=== PATIENT | female | born 1950 | race Caucasian/White ===

== ENCOUNTER 2016-10-07 20:20 | Inpatient (IN) | payer BC ==
--- NOTE | ~2016-10-07 | HP ---
History And Physical [place] [id number] [facility] [place]. [address] NAME: LAVONNE HO : 46 STATUS : ADM IN [facility]#: [id number] AGE: 65 ADM/REG DATE : 10/07/16 MR#: [id number] REPORT SERV DATE: 10/07/16 DICTATED BY: MAYA DIETRICH DATE: 10/07/16 REPORT STATUS : Draft TRANSCRIBED BY: MODL DATE: 10/07/16 DATE OF ADMISSION: 10/07/2016 POINT OF ENTRY: [facility] Emergency Department. CHIEF COMPLAINT: Shortness of breath, cough, and sputum production. HISTORY OF PRESENT ILLNESS: Ms. Ho is a 65-year-old female with a history of hypertension; hyperlipidemia; as well as atrial fibrillation, on Coumadin, who presents to the emergency department with a two-day history of chills, myalgias, body aches, as well as shortness of breath, cough, and sputum production. The patient states her symptoms began on Sunday evening after returning home from work. At first, they were chills and myalgias as well as some body aches. This was followed by sinus congestion that was reported to be bloody as well as some productive cough and sputum production with some scant hemoptysis in the sputum as well as some shortness of breath. The patient denies any fevers, chest pain, palpitations, abdominal pain, nausea, vomiting, diarrhea, constipation, dysuria, lower extremity edema, melena, or hematochezia. The patient states she did have an episode of vomiting here in the emergency department after receiving some medications, which is improved with some Zofran. COMPREHENSIVE REVIEW OF SYSTEMS: Otherwise negative unless listed in history of present illness. Initial evaluation in the emergency department is notable for a chest x-ray concerning for right middle lobe as well as possible left lower lobe pneumonia. White count was normal. She was noted to be mildly hypoxemic requiring about 2 L by nasal cannula. INR is 2.0. Remaining of her labs were otherwise unremarkable. She was admitted to the Hospitalist Service for further evaluation and management. PREVIOUS MEDICAL HISTORY: 1. Atrial fibrillation, on Coumadin. 2. Hypertension. 3. Hyperlipidemia. 4. Asplenia. SURGICAL HISTORY: 1. Unknown gastric bypass surgery and then reversal. 2. 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 ALLERGIES: HYDROCHLOROTHIAZIDE AND ALCOHOL. HOME MEDICATIONS: 1. Lasix 20 mg daily. 2. Cozaar 50 mg daily. 3. Lovastatin 20 mg daily. History And Physical [address] [place]. [address] NAME: LAVONNE HO : 46 STATUS : ADM IN PAT#: [id number] AGE: 65 ADM/REG DATE : 10/07/16 MR#: [id number] REPORT SERV DATE: 10/07/16 DICTATED BY: MAYA DIETRICH DATE: 10/07/16 REPORT STATUS : Draft TRANSCRIBED BY: MODJim DATE: 10/07/16 4. Toprol 50 mg daily. 5. Protonix 20 mg daily. 6. Coumadin 5 mg daily. SOCIAL HISTORY: Denies any tobacco, alcohol, or illicits. FAMILY MEDICAL HISTORY: Mother with history of coronary artery disease in her 80s. Father with pancreatic cancer. Father of either pancreatic cancer or liver failure she is unsure. LABS AND IMAGIN. White count is 9.1, hemoglobin is 13.2, hematocrit is 39.9, platelets 220, INR is 2.0. 2. Sodium is 133, potassium 3.5, chloride 102, carbon dioxide 25, BUN 12, creatinine 0.70, glucose is 106, calcium is 8.8, magnesium is 2.1. 3. Troponin is less than 0.02. 4. EKG per my review shows atrial fibrillation with no evidence of any acute ischemic infarction. Heart rate was 103. 5. Chest x-ray per my review shows right middle lobe as well as left lower lobe infiltrate concerning for pneumonia. PHYSICAL EXAMINATION: VITAL SIGNS: Temperature is 98.5 degrees Fahrenheit; pulse is 109; respirations 20; saturating 94% on 2 L by nasal cannula; blood pressure 127/90, on recheck, blood pressure is now 157/89, pulse of 100s to one teens, saturating 94% on 2 L by nasal cannula. GENERAL: The patient is awake, alert, in no acute distress, resting comfortably in bed. She is a well-developed, well-nourished female. HEENT: Atraumatic and normocephalic. Moist mucous membranes. Pupils are equal, round, reactive to light and accommodation. Extraocular eye movements intact. No scleral icterus. NECK: No jugular venous distention or carotid bruits. CARDIAC: Irregularly irregular rate and rhythm. No murmurs, rubs, or gallops. LUNGS: Does have some left lower lobe with right middle lobe rhonchi, otherwise is not in acute distress. No wheezes or crackles appreciated. ABDOMEN: Soft, nontender, nondistended. Good bowel sounds. No rebound, guarding, or rigidity. EXTREMITIES: Warm and well perfused. No cyanosis, clubbing, or edema. SKIN: Warm and dry. PSYCH: Affect appropriate. NEURO: Alert and oriented x3. Cranial nerves 2 through 12 grossly intact. Speech is normal. Gait not assessed. ASSESSMENT: Ms. Ho is a 65-year-old female, who is asplenic from her previous splenectomy, who presents with a two-day history of chills, body aches, myalgias, as well as productive cough with hemoptysis, found to have evidence of pneumonia. PROBLEM LIST: 1. Pneumonia. 2. Asplenia. History And Physical [address] [address] NAME: LAVONNE HO : 46 STATUS : ADM IN [facility]#: [id number] AGE: 65 ADM/REG DATE : 10/07/16 MR#: [id number] REPORT SERV DATE: 10/07/16 DICTATED BY: MAYA DIETRICH DATE: 10/07/16 REPORT STATUS : Draft TRANSCRIBED BY: TOYA DATE: 10/07/16 3. Hypoxia. 4. Hemoptysis. 5. History of atrial fibrillation, on Coumadin. PLAN: 1. Pneumonia. The patient has community-acquired pneumonia. We will treat with IV Rocephin as well as azithromycin. Followup blood cultures. Try to obtain sputum cultures as well as urinary antigens. 2. Hypoxia, likely secondary to pneumonia. Provide some bronchodilators as well as pulmonary toilet, wean as tolerated. 3. Asplenia. The patient is at risk for worsening of her underlying infection. Therefore, we will admit the patient to the hospitalist Service with close observation as well as IV antibiotics. No evidence of any sepsis or decompensation at this time. 4. Hemoptysis. The patient is on anticoagulation. Does report some scant hemoptysis. We will check a CT scan of the chest holding her Coumadin pending the results of that CT scan. 5. Atrial fibrillation, on Coumadin. The patient is currently well rate controlled. Continue the patient's home beta-theresa holding her Coumadin. 6. DVT prophylaxis. The patient is therapeutically anticoagulated. CODE STATUS: The patient wished to be full code. JCB/MODL Maya Dietrich MD / [id number] CC: ABIEL THOMAS
--- NOTE | ~2016-10-07 | CN ---
Consultation Report [facility] [address] [place]. [address] NAME: LAVONNE BENÍTEZ : 46 STATUS : ADM IN PAT#: [id number] AGE: 65 ADM/REG DATE : 10/07/16 MR#: [id number] REPORT SERV DATE: 10/10/16 DICTATED BY: VINAYAK PLEITEZ DATE: 10/10/16 REPORT STATUS : Draft TRANSCRIBED BY: MODL DATE: 10/10/16 INFECTIOUS DISEASE CONSULT DATE OF CONSULTATION: 10/10/2016 REASON FOR CONSULTATION: New fevers in patient with pneumonia. HISTORY OF PRESENT ILLNESS: This is a 65-year-old female with a past medical history notable for atrial fibrillation along with previous gastric bypass, for which she underwent reversal along with splenectomy. She says she was in her baseline state of health until 10/06/2016 when she developed severe shaking chills and some joint pains especially in her wrist. She did develop a cough, which was productive of small amount of pinkish sputum and maybe one thumbnail sized clot. She had worsening shortness of breath, and all these symptoms brought her to the emergency department at [facility] where she was found to have a normal white blood cell count. Procalcitonin 0.12, INR 2.0, and chest x-ray showing pulmonary infiltrates which were better seen on CT scan without IV contrast that day which indeed revealed patchy and nodular infiltrates most extensive in the right upper lobe and right lower lobe with less extensive infiltrates in the left upper lobe including the lingular segment in the left lower lobe, felt to be most consistent with an asymmetric bilateral pneumonia. There was probable mild right paratracheal and subcarinal reactive adenopathy. The patient was treated with ceftriaxone and azithromycin. She was afebrile initially and remained afebrile until yesterday afternoon about 48 hours after presentation when she spiked a fever to 103.0 and again to 102.8 this morning. The patient has been on supplemental oxygen since admission and has been on 4 L since 10/08/2016 with oxygen saturations of 91% and 94%. She had a repeat chest x-ray today, which shows increasing mixed interstitial and alveolar infiltrates in the mid and lower right lung and at the left lung base. The patient says she continues to cough some, although not a lot and has just some clear mucus which at times is somewhat pinkish in color, and other times she has had some greenish mucus. She denies any more shaking chills. The patient denies any previous history like this except 44 years ago when she delivered her child and was told she had "blood in her lungs." She states her heart stopped then and she was resuscitated, but she has had no recurrent significant pulmonary issues since then. PAST MEDICAL HISTORY: As outlined above. In addition, there is a history of hyperlipidemia and hypertension. ALLERGIES: HYDROCHLOROTHIAZIDE. PRESENT MEDICATIONS: Include antibiotics as mentioned along with Lasix, Bumex, Cozaar, Mevacor, Lopressor, and Protonix. SOCIAL HISTORY: The patient is a lifelong nonsmoker, but has had a lot of exposure to secondhand smoke. She lives with her . No pets. 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 No recent travel history or unusual exposures otherwise. Consultation Report [address] [place]. [address] NAME: LAVONNE BENÍTEZ : 46 STATUS : ADM IN [facility]#: [id number] AGE: 65 ADM/REG DATE : 10/07/16 MR#: [id number] REPORT SERV DATE: 10/10/16 DICTATED BY: VINAYAK PLEITEZ DATE: 10/10/16 REPORT STATUS : Draft TRANSCRIBED BY: TOYA DATE: 10/10/16 FAMILY HISTORY: Notable for heart disease in her mother, pancreatic cancer in her father, and liver cancer and chronic hepatitis C in her brother. The patient states that a neighbor had tuberculosis when she was a child, but she had a little contact with her. REVIEW OF SYSTEMS: No significant headache or visual symptoms. No genitourinary symptoms. No gross hematuria. No further joint complaints. No skin rashes. No bleeding or bruising, otherwise. PHYSICAL EXAMINATION: VITAL SIGNS: The patient weighs 110 kg. Fevers as mentioned, blood pressure 143/67, pulse 100, respiratory rate 16 to 18 and nonlabored. GENERAL: She is lying in bed, in no acute distress, although looks mildly ill. Nasal cannula in place with 4 L oxygen. HEAD AND NECK: Extraocular movements intact. Conjunctivae normal. The oral cavity is clear. No ulcers. No thrush. NECK: Supple. No adenopathy. LUNGS: She has diffuse coarse breath sounds, expiratory wheezes, and scattered crackles and rhonchi. CARDIAC: Regular rhythm. Normal S1, S2 without murmur, gallop, or rub. ABDOMEN: Obese, soft, and nontender. EXTREMITIES: Show some venous stasis changes in the lower legs. Perhaps just trace edema. She has a peripheral IV without phlebitis. Joint exam unremarkable. LABORATORY STUDIES: White blood cell count 6.9; hemoglobin 11.8, it was 13 yesterday, and 13.2 on admission; platelets 233. Automated differential 85% neutrophils, 11% lymphocytes, 3% monocytes. Procalcitonin on admission 0.12, repeat today 0.27. Creatinine 0.74. BNP on 10/08/2016 is 151. MICROBIOLOGY STUDIES: Blood cultures from 10/07/2016 and from yesterday are negative to date. Urinalysis on admission: Large dipstick positive blood, 47 red blood cells. Repeat on 10/09/2016, small dipstick positive blood, 1 red blood cell. Rapid influenza screen is negative. Urine pneumococcal and Legionella antigens negative. IMPRESSION: The patient appears have a multilobar pneumonia. However, there are I believe atypical features here including the normal white blood cell count since admission. The lack of fever over the first 48 hours of admission and now these high fevers despite appropriate empiric antibiotics along with the somewhat low procalcitonin. There has been this report from the patient of some hemoptysis. Overall, I doubt this is a pulmonary hemorrhage syndrome, but must consider the possibility. The patient also has a history of splenectomy. PLAN: Consultation Report [address] [place]. [address] NAME: LAVONNE BENÍTEZ : 46 STATUS : ADM IN [facility]#: [id number] AGE: 65 ADM/REG DATE : 10/07/16 MR#: [id number] REPORT SERV DATE: 10/10/16 DICTATED BY: VINAYAK PLEITEZ DATE: 10/10/16 REPORT STATUS : Draft TRANSCRIBED BY: TOYA DATE: 10/10/16 1. Agree with the change of antibiotics to Zosyn. 2. We will attempt a sputum Gram stain and culture. 3. We will check a sedimentation rate, C-reactive protein, and liver function tests. 4. If no improvement, I would consider a pulmonary consultation and possible bronchoscopy, especially if she has any documented hemoptysis. 5. We also finished a five-day course of azithromycin. JUAN CARLOS/MODL Vinayak Pleitez M.D. / [id number] CC: DO MARTHA Felipe STEPHEN C.
--- NOTE | ~2016-10-07 | DS ---
Discharge Summary [facility] [address] [facility] [place]. [address] NAME: LAVONNE BENÍTEZ : 46 STATUS : DIS IN PAT#: [id number] AGE: 65 ADM/REG DATE : 10/07/16 MR#: [id number] REPORT SERV DATE: 10/15/16 DICTATED BY: SHAMA LOAIZA DATE: 10/15/16 REPORT STATUS : Draft TRANSCRIBED BY: MODL DATE: 10/15/16 ADMISSION DATE: 10/07/2016 DISCHARGE DATE: 10/15/2016 FINAL DIAGNOSES: 1. Bilateral pneumonia. 2. Acute hypoxic respiratory failure, improved. 3. Atrial fibrillation, status post rapid. 4. Hypertension. 5. Status post hypokalemia. 6. Status post hyponatremia. DIAGNOSTIC EXAMS: Chest x-ray showing bilateral pneumonia pattern. CAT scan of the chest without showing patchy and nodular infiltrates, most extensive right upper lobe and right lower lobe with less extensive infiltrates left upper lobe including the lingular segment, and the left lower lobe most consistent with an asymmetric bilateral pneumonia pattern, superimposed pulmonary hemorrhage not completely excluded, probable mild right paratracheal and subcarinal reactive adenopathy, cardiomegaly, nonspecific hepatic steatosis pattern. Echocardiogram showing normal left ventricular systolic function with EF of 55%. Normal right ventricular chamber size and systolic function. No significant valvular regurgitation or stenosis. Chest x-ray showing interval improvement in central airspace consolidation with continued underlying interstitial thickening through the central lungs, continued cardiomegaly. HOSPITAL COURSE: Please refer to the H and P done by Dr. Sapp dated on 10/07/2016. Briefly, this is a 65-year-old female with atrial fibrillation and hypertension, came in for two-day history of chills, myalgia, shortness of breath, and productive cough. The patient went to the emergency room, found to have bilateral pneumonia and was admitted. She was started on Rocephin and azithromycin. However, she did not do well. She spiked the fever and we got ID involved. The ceftriaxone was switched to Zosyn and from there we saw remarkable improvement clinically and radiographically. Unfortunately, we were not able to isolate any organisms. On the day of discharge, the patient was saturating 92% on room air and 90% on room air at ambulation. We are now waiting for ID to give us a final recommendation, most likely, they would stop all antibiotics as she has received the right amount of antibiotics already. She will be discharged with the following medications. Coumadin 5 mg at night, Lasix 20 mg a day, Cozaar down to 25 mg at bedtime, Mevacor 20 mg with supper, metoprolol 50 mg twice a day, Protonix 20 mg once a day. I will give her a prescription for albuterol MDI two puffs q.6 hours p.r.n. shortness of breath and Symbicort 80/4.5 two puffs b.i.d. She will need to follow up with her PCP, Hollis Smith, in one to two weeks. This has been Discharge Summary [address] [place]. [address] NAME: LAVONNE BENÍTEZ : 46 STATUS : DIS IN PAT#: [id number] AGE: 65 ADM/REG DATE : 10/07/16 MR#: [id number] REPORT SERV DATE: 10/15/16 DICTATED BY: SHAMA LOAIZA DATE: 10/15/16 REPORT STATUS : Draft TRANSCRIBED BY: TOYA DATE: 10/15/16 explained to her, and she agreed and understood the plan. DICTATED BY: Emilee Farley/TOYA Shama Loaiza M.D. / [id number] CC: Emilee Farley STEPHEN C.
[2016-10-07 17:53] LABS: BASOPHILS 0.2 %; BASOPHILS ABSOLUTE 0.02 10/3/uL (0.0-0.16); EOSINOPHILS 0.1 %; EOSINOPHILS ABSOLUTE 0.01 10/3/uL (0.0-0.53); HEMATOCRIT 39.9 % (36.0-48.0); HEMOGLOBIN 13.2 g/dL (12.0-16.0); IMMATURE GRANULOCYTES 0.3 %; IMMATURE GRANULOCYTES ABSOLUTE 0.03 10/3/uL (0.0-0.11); LYMPHOCYTES 17.3 %; LYMPHOCYTES ABSOLUTE 1.57 10/3/uL (0.67-4.30); MEAN CORPUSCULAR HEMOGLOB 27.6 pg (26.0-34.0); MEAN PLATELET VOLUME 9.7 fL (9.2-13.0); MONOCYTES 4.8 %; MONOCYTES ABSOLUTE 0.43 10/3/uL (0.21-1.20); NEUTROPHILS 77.3 %; NEUTROPHILS ABSOLUTE 6.99 10/3/uL (2.02-8.40); RED CELL COUNT 4.79 10/6/uL (4.0-5.6); WHITE BLOOD CELLS 9.1 10/3/uL (4.5-10.5)
[2016-10-07 17:55] LABS: MANUAL DIFF NO %; MEAN CORPUS HGB CONC 33.1 g/dL (32.0-36.0); MEAN CORPUSCULAR VOLUME 83.3 fL (80-100); PLATELET COUNT 220 10/3/uL (150-400)
[2016-10-07 18:01] LABS: PARTIAL THROMBO TIME 48.6 SEC (22.5-37.2)
[2016-10-07 18:02] LABS: PROTIME (NOT ORD) 22.3 SEC (12.0-14.5)
[2016-10-07 18:11] LABS: BUN (BLOOD UREA NITROGEN) 12 MG/DL (6-23); CALCIUM, SERUM 8.8 MG/DL (8.5-10.4); CHEST PAIN PROFILE TAT 0 Hrs 24 Mins; CHLORIDE, SERUM 102 MMOL/L (96-112); CO2 (CARBON DIOXIDE) 25 MMOL/L (24-34); GFR AFRICAN AMERICAN 104 ML/MIN (>=60); GFR NON AFRICAN AMERICAN 90 ML/MIN (>=60); GLUCOSE, SERUM 106 MG/DL (60-99); POTASSIUM, SERUM 3.5 MMOL/L (3.5-5.3); SODIUM, SERUM 133 MMOL/L (135-148); TROPONIN I <0.02 NG/ML (<0.05)
[2016-10-07] MEDS ORDERED: L20 PO (20:29)
[2016-10-07] MEDS ORDERED: C5 PO (20:29)
[2016-10-07] MEDS ORDERED: LOP50 PO (20:30)
[2016-10-07] MEDS ORDERED: COZ25 PO (20:30)
[2016-10-07] MEDS ORDERED: PROTONIX20 MG PO (20:31)
[2016-10-07] MEDS ORDERED: MEVACOR PO (20:31)
[2016-10-07 22:23] LABS: ASCORBIC ACID (UR NOT ORDER) 40 (NEG); BILIRUBIN, URINE NEGATIVE (NEG); ER URINALYSIS TAT 0 Hrs 20 Mins; KETONE, URINE 80 MG/DL (NEG); LEUKOCYTE ESTERASE(NOT OR NEG (NEG); NITRITE (URINE) NEG (NEG); WBC (NOT ORDERED) (RFLEX) 4 (0-5)
[2016-10-07 23:07] LABS: INFLUENZA A SCREEN NEGATIVE (NEGATIVE); INFLUENZA B SCREEN NEGATIVE (NEGATIVE)
[2016-10-08 05:03] LABS: BASOPHILS 0.1 %; BASOPHILS ABSOLUTE 0.01 10/3/uL (0.0-0.16); EOSINOPHILS 0 %; HEMOGLOBIN 11.8 g/dL (12.0-16.0); IMMATURE GRANULOCYTES 0.2 %; IMMATURE GRANULOCYTES ABSOLUTE 0.02 10/3/uL (0.0-0.11); LYMPHOCYTES 18.5 %; MEAN CORPUS HGB CONC 32.9 g/dL (32.0-36.0); MEAN CORPUSCULAR HEMOGLOB 27.4 pg (26.0-34.0); MEAN CORPUSCULAR VOLUME 83.3 fL (80-100); MONOCYTES 4.1 %; MONOCYTES ABSOLUTE 0.35 10/3/uL (0.21-1.20); NEUTROPHILS 77.1 %; NEUTROPHILS ABSOLUTE 6.65 10/3/uL (2.02-8.40); PLATELET COUNT 202 10/3/uL (150-400); RBC DISTRIBUTION WIDTH 15.3 % (12.0-16.0); RED CELL COUNT 4.31 10/6/uL (4.0-5.6); WHITE BLOOD CELLS 8.6 10/3/uL (4.5-10.5)
[2016-10-08 05:04] LABS: BUN (BLOOD UREA NITROGEN) 13 MG/DL (6-23); CALCIUM, SERUM 8.4 MG/DL (8.5-10.4); CHLORIDE, SERUM 102 MMOL/L (96-112); CO2 (CARBON DIOXIDE) 26 MMOL/L (24-34); CREATININE 0.69 MG/DL (0.55-1.02); GFR AFRICAN AMERICAN 104 ML/MIN (>=60); GFR NON AFRICAN AMERICAN 90 ML/MIN (>=60); GLUCOSE, SERUM 103 MG/DL (60-99); SODIUM, SERUM 137 MMOL/L (135-148)
[2016-10-08 05:05] LABS: HEMATOCRIT 35.9 % (36.0-48.0); MANUAL DIFF NO %
[2016-10-09 07:04] LABS: BASOPHILS 0 %; EOSINOPHILS 0 %; IMMATURE GRANULOCYTES 0.1 %; IMMATURE GRANULOCYTES ABSOLUTE 0.01 10/3/uL (0.0-0.11); LYMPHOCYTES ABSOLUTE 0.92 10/3/uL (0.67-4.30); MEAN CORPUS HGB CONC 32.9 g/dL (32.0-36.0); MEAN CORPUSCULAR HEMOGLOB 27.1 pg (26.0-34.0); MEAN CORPUSCULAR VOLUME 82.3 fL (80-100); MEAN PLATELET VOLUME 10.8 fL (9.2-13.0); MONOCYTES 3.8 %; MONOCYTES ABSOLUTE 0.29 10/3/uL (0.21-1.20); NEUTROPHILS 84.1 %; NEUTROPHILS ABSOLUTE 6.47 10/3/uL (2.02-8.40); PLATELET COUNT 224 10/3/uL (150-400); RBC DISTRIBUTION WIDTH 15.2 % (12.0-16.0); WHITE BLOOD CELLS 7.7 10/3/uL (4.5-10.5)
[2016-10-09 07:07] LABS: HEMATOCRIT 39.5 % (36.0-48.0); MANUAL DIFF NO %
[2016-10-09 07:29] LABS: BUN (BLOOD UREA NITROGEN) 16 MG/DL (6-23); CALCIUM, SERUM 8.2 MG/DL (8.5-10.4); CHLORIDE, SERUM 102 MMOL/L (96-112); CO2 (CARBON DIOXIDE) 26 MMOL/L (24-34); CREATININE 0.81 MG/DL (0.55-1.02); GFR AFRICAN AMERICAN 87 ML/MIN (>=60); GFR NON AFRICAN AMERICAN 75 ML/MIN (>=60); PHOSPHORUS, SERUM 3.3 MG/DL (2.5-4.5)
[2016-10-09 07:30] LABS: SODIUM, SERUM 130 MMOL/L (135-148)
[2016-10-09 07:31] LABS: GLUCOSE, SERUM 135 MG/DL (60-99); POTASSIUM, SERUM 4.5 MMOL/L (3.5-5.3)
[2016-10-09 16:58] LABS: WBC (NOT ORDERED) (RFLEX) 0 (0-5)
[2016-10-09 17:11] LABS: ASCORBIC ACID (UR NOT ORDER) NEG (NEG); BILIRUBIN, URINE NEGATIVE (NEG); KETONE, URINE NEGATIVE (NEG); LEUKOCYTE ESTERASE(NOT OR NEG (NEG)
[2016-10-10 06:59] LABS: BASOPHILS 0.3 %; BASOPHILS ABSOLUTE 0.02 10/3/uL (0.0-0.16); EOSINOPHILS 0 %; HEMATOCRIT 36.1 % (36.0-48.0); HEMOGLOBIN 11.8 g/dL (12.0-16.0); IMMATURE GRANULOCYTES 0.1 %; IMMATURE GRANULOCYTES ABSOLUTE 0.01 10/3/uL (0.0-0.11); LYMPHOCYTES 11.3 %; LYMPHOCYTES ABSOLUTE 0.78 10/3/uL (0.67-4.30); MEAN CORPUS HGB CONC 32.7 g/dL (32.0-36.0); MEAN CORPUSCULAR HEMOGLOB 27.3 pg (26.0-34.0); MEAN CORPUSCULAR VOLUME 83.6 fL (80-100); MEAN PLATELET VOLUME 10.2 fL (9.2-13.0); MONOCYTES ABSOLUTE 0.21 10/3/uL (0.21-1.20); NEUTROPHILS 85.3 %; PLATELET COUNT 233 10/3/uL (150-400); RBC DISTRIBUTION WIDTH 15.2 % (12.0-16.0); RED CELL COUNT 4.32 10/6/uL (4.0-5.6); WHITE BLOOD CELLS 6.9 10/3/uL (4.5-10.5)
[2016-10-10 07:01] LABS: MANUAL DIFF NO %
[2016-10-10 07:06] LABS: BUN (BLOOD UREA NITROGEN) 16 MG/DL (6-23); CALCIUM, SERUM 8.4 MG/DL (8.5-10.4); CHLORIDE, SERUM 99 MMOL/L (96-112); CO2 (CARBON DIOXIDE) 28 MMOL/L (24-34); CREATININE 0.74 MG/DL (0.55-1.02); GFR AFRICAN AMERICAN 97 ML/MIN (>=60); GFR NON AFRICAN AMERICAN 84 ML/MIN (>=60); SODIUM, SERUM 134 MMOL/L (135-148)
[2016-10-10 07:07] LABS: GLUCOSE, SERUM 104 MG/DL (60-99); POTASSIUM, SERUM 3.5 MMOL/L (3.5-5.3)
[2016-10-10 11:37] LABS: PROCALCITONIN 0.27 ng/mL (<0.5)
[2016-10-11 04:36] LABS: BASOPHILS 0.4 %; BASOPHILS ABSOLUTE 0.02 10/3/uL (0.0-0.16); EOSINOPHILS 0 %; HEMATOCRIT 37.1 % (36.0-48.0); IMMATURE GRANULOCYTES 0.2 %; IMMATURE GRANULOCYTES ABSOLUTE 0.01 10/3/uL (0.0-0.11); LYMPHOCYTES 24.4 %; LYMPHOCYTES ABSOLUTE 1.32 10/3/uL (0.67-4.30); MEAN CORPUS HGB CONC 32.3 g/dL (32.0-36.0); MEAN CORPUSCULAR HEMOGLOB 27.1 pg (26.0-34.0); MEAN CORPUSCULAR VOLUME 83.7 fL (80-100); MEAN PLATELET VOLUME 10.1 fL (9.2-13.0); MONOCYTES 2.8 %; MONOCYTES ABSOLUTE 0.15 10/3/uL (0.21-1.20); NEUTROPHILS 72.2 %; NEUTROPHILS ABSOLUTE 3.92 10/3/uL (2.02-8.40); PLATELET COUNT 224 10/3/uL (150-400); RBC DISTRIBUTION WIDTH 15.3 % (12.0-16.0); RED CELL COUNT 4.43 10/6/uL (4.0-5.6); WHITE BLOOD CELLS 5.4 10/3/uL (4.5-10.5)
[2016-10-11 04:38] LABS: MANUAL DIFF NO %
[2016-10-11 04:57] LABS: CALCIUM, SERUM 8.5 MG/DL (8.5-10.4); CHLORIDE, SERUM 97 MMOL/L (96-112); CO2 (CARBON DIOXIDE) 31 MMOL/L (24-34); CREATININE 0.74 MG/DL (0.55-1.02); GFR AFRICAN AMERICAN 97 ML/MIN (>=60); GFR NON AFRICAN AMERICAN 84 ML/MIN (>=60); GLUCOSE, SERUM 103 MG/DL (60-99); PHOSPHORUS, SERUM 3.4 MG/DL (2.5-4.5); POTASSIUM, SERUM 3.2 MMOL/L (3.5-5.3); SODIUM, SERUM 135 MMOL/L (135-148)
[2016-10-11 05:00] LABS: BUN (BLOOD UREA NITROGEN) 12 MG/DL (6-23)
[2016-10-11 05:16] LABS: SED RATE 92 MM/HR (0-20)
[2016-10-12 05:16] LABS: BUN (BLOOD UREA NITROGEN) 15 MG/DL (6-23); CALCIUM, SERUM 8.6 MG/DL (8.5-10.4); CHLORIDE, SERUM 98 MMOL/L (96-112); CO2 (CARBON DIOXIDE) 32 MMOL/L (24-34); CREATININE 0.72 MG/DL (0.55-1.02); GFR AFRICAN AMERICAN 100 ML/MIN (>=60); GFR NON AFRICAN AMERICAN 87 ML/MIN (>=60); GLUCOSE, SERUM 94 MG/DL (60-99); POTASSIUM, SERUM 3.5 MMOL/L (3.5-5.3); SODIUM, SERUM 138 MMOL/L (135-148)
[2016-10-14 04:45] LABS: BUN (BLOOD UREA NITROGEN) 11 MG/DL (6-23); CALCIUM, SERUM 8.9 MG/DL (8.5-10.4); CHLORIDE, SERUM 102 MMOL/L (96-112); CO2 (CARBON DIOXIDE) 31 MMOL/L (24-34); CREATININE 0.64 MG/DL (0.55-1.02); GFR AFRICAN AMERICAN 107 ML/MIN (>=60); GFR NON AFRICAN AMERICAN 92 ML/MIN (>=60); GLUCOSE, SERUM 101 MG/DL (60-99); POTASSIUM, SERUM 3.6 MMOL/L (3.5-5.3); SODIUM, SERUM 138 MMOL/L (135-148)
[2016-10-15] MEDS ORDERED: KLOR-CON 1010 MEQ PO (08:56)
[2016-10-15] MEDS ORDERED: SYMBICORT 80/4.1 INH INH (08:57)
[2016-10-15] MEDS ORDERED: PROAIR HFA INH (08:59)
== END 2016-10-15 11:35 | disposition home or self-care (01) | DRG 193 ==
LOC: ER 20:20 → 1SO 22:05
PROVIDERS: Emergency Medicine; Internal Medicine; Internal Medicine Infectious Disease; Physician Assistant
DX: J18.9 Pneumonia, unspecified organism (principal); J96.01 Acute respiratory failure with hypoxia; E87.1 Hypo-osmolality and hyponatremia; Z68.41 Body mass index [BMI] 40.0-44.9, adult; I48.91 Unspecified atrial fibrillation; E87.6 Hypokalemia; E78.5 Hyperlipidemia, unspecified; I10 Essential (primary) hypertension; E66.9 Obesity, unspecified; I87.8 Other specified disorders of veins; Z79.01 Long term (current) use of anticoagulants; Z79.899 Other long term (current) drug therapy; Z90.81 Acquired absence of spleen; Z88.8 Allergy status to other drugs, medicaments and biological substances; Z91.048 Other nonmedicinal substance allergy status; Z98.84 Bariatric surgery status
CPT/HCPCS: 71010; 71020; 71250; 80048; 81001; 83605; 83735; 83880; 84100; 84145; 84484; 85025; 85610; 85652; 85730; 86140; 87040; 87070; 87205; 87449; 87641; 87804; 93005; 94640; 96365; 96375; 97110-GP; 97116-GP; 97161-GP; 99291; A9270-GY; C8929; G8978-CK-GP; G8979-CI-GP; J0456; J2405; J2543; J2920; J3475; Q9957